=== PATIENT | female | born 1960 | race Caucasian/White ===

== ENCOUNTER 2017-02-11 09:29 | Day surgery (SDC) | payer OTHER ==
[~2017-02-11] VITALS: Ht 167.6 cm; Wt 147.7 kg
[~2017-02-11 09:29] MED LIST: AMBI10TA PO; AMLO5TAB2 PO; CYAN1000P IM; CYCL1TAB29 PO; EVIS60TA PO; MOBI15TA PO; MULT-120 PO; OXYC-395 PO; PROZ40CA PO; ZANT150T2 PO
[2017-02-11 09:47] VITALS: BP 193/112; PULSE 100; TEMP 98.2; O2SAT 95
[2017-02-11] MEDS ORDERED: SODIUM CHLORIDE 0.9% 1000 ML IV SCH (10:00)
[2017-02-11] MEDS ORDERED: MILL5TAB PO (10:01)
[2017-02-11] MEDS ORDERED: MULTTAB67 PO (10:01)
--- NOTE | 2017-02-11 12:07 | PD.RAD ---
Post Procedure Progress Note Pre Procedure Diagnosis: (1) Left shoulder pain Post Procedure Diagnosis: (1) Left shoulder pain Procedure Date: Feb 11, 2017 Supervising Radiologist: Jonathan Sanchez JR Proceduralist/Assist: Fabiola Mendes RT(R)(CV), RT Darling(R)() Anesthesia: Local Plan of Activity Patient to Unit: Other Patient Condition: Good Additional Comments: Left shoulder arthrogram performed with CT to follow. Completer rotator cuff tear observed. CT pending. See PACS Report for procedural detail/treatment Jr. Daniel,Jonathan Fuentes MD Feb 11, 2017 12:07
[2017-02-11] MEDS ORDERED: IOHEXOL 300 MG/ML 50 ML BTL (for RAD DIAG) ONE (12:17)
[2017-02-11 12:25] VITALS: BP 214/159; PULSE 89; RESP 20; TEMP 98.2; O2SAT 97
[2017-02-11 12:50] VITALS: BP 148/87; PULSE 94; RESP 18; O2SAT 96
[2017-02-11] MEDS ORDERED: cloNIDine HCL 0.1 MG TAB PO ONE (13:15)
--- NOTE | 2017-02-11 15:30 | RADRPT ---
EXAM DATE/TIME: 02/11/2017 12:12 [facility] COMPARISON: No previous studies available for comparison. INDICATIONS : Patient with left shoulder pain in need of arthrogram. MEDICAL HISTORY : 1.Breast cancer 2.HTN 3.GERD 4.Depression 5.Arthritis 6.Anemia SURGICAL HISTORY : 1. Right shoulder surgery 2.Spine surgery 3.Hysterectomy 4.Craniotomy 5.Va 6. Gastric bypass ENCOUNTER: Initial ACUITY: 3 months PAIN SCORE: 4/10 LOCATION: Left Shoulder FLUORO TIME: 1.4 minutes IMAGE SERIES: 1 CONTRAST: 13cc Onmipaque 300 DEVICE(S): 22 gauge needle was placed into the left shoulder joint. PROCEDURE : 1. Fluoroscopically guided left shoulder joint puncture. 2. Arthrogram. The risks, benefits and alternatives to the procedure were explained and verbal and written consent w as obtained. The site was prepped in sterile fashion. Full sterile technique was used, including ca p, mask, sterile gloves and gown and a large sterile sheet. Hand hygiene and 2% chlorhexidine and/or betadine/alcohol prep was utilized per protocol for cutaneous antisepsis. The skin and subcutaneous tissues were infiltrated with local anesthetic solution. Under fluoroscopic guidance the left shoulder joint was accessed with a 22 gauge spinal needle via an anterior approach. 13 mL of iodinated contrast was instilled into the joint under fluoroscopic contr ol. There is some opacification of the subacromial bursa suggesting a complete rotator cuff tear. The needle was removed. The patient tolerated the procedure well and there were no complications. Cross-sectional imaging is to be performed for further evaluation. CONCLUSION: Uncomplicated shoulder arthrogram. Cross-sectional imaging is to be performed for further evaluation. Suspected complete rotator cuff tear. Jonathan Sanchez Jr., MD on February 11, 2017 at 13:49 Board Certified Radiologist. This report was verified electronically.
--- NOTE | 2017-02-11 15:40 | RADRPT ---
EXAM DATE/TIME: 02/11/2017 12:13 [facility] COMPARISON: No previous studies available for comparison. INDICATIONS : Post arthogram left shoulder. RADIATION DOSE: 35.45 CTDIvol (mGy) MEDICAL HISTORY : Hypertension. Carcinoma, breast. SURGICAL HISTORY : Craniotomy. Cholecystectomy. ENCOUNTER: Initial ACUITY: 1 day PAIN SCALE: 0/10 LOCATION: Left shoulder TECHNIQUE: Volumetric scanning of the shoulder was performed. Using automated exposure control and adjustment o f the mA and/or kV according to patient size, radiation dose was kept as low as reasonably achievable to obtain optimal diagnostic quality images. FINDINGS: Contrast is seen within the glenohumeral joint. Contrast extends into the subacromial subdeltoid burs a through a defect in the anterior distal supraspinatus tendon. The tear measures 9 mm in medial to l ateral dimension and 1.7 cm in anterior to posterior dimension. Linear interstitial partial-thickness tear more posteriorly in the central supraspinatus tendon and anterior infraspinatus fibers. Labrum within normal limits. Small glenohumeral joint osteophytes. Mild diffuse glenohumeral joint articular cartilage thinning. M oderate acromioclavicular joint hypertrophic change. No evidence of fracture. Alignment within normal limits. Acromial shape is type I. CONCLUSION: 1. Distal anterior full-thickness supraspinatus tendon tear. 2. Partial-thickness bursal surface infraspinatus tendon tear with longitudinal interstitial extensio n. 3. Moderate severity acromioclavicular joint arthrosis. 4. Mild glenohumeral joint arthrosis. Vazquez Guerrero MD on February 11, 2017 at 15:32 Board Certified Radiologist. This report was verified electronically.
[2017-02-17] MEDS ORDERED: METO25TA3 PO (09:24)
== END 2017-02-11 13:20 | disposition home or self-care (01) ==
LOC: HROP 09:29 → HRIP 09:30 → HROP 13:20
PROVIDERS: ATTEND Orthopaedic Surgery Sports Medicine
DX: M75.122 Complete rotator cuff tear or rupture of left shoulder, not specified as traumatic (principal); I10 Essential (primary) hypertension; K21.9 Gastro-esophageal reflux disease without esophagitis; F32.9 Major depressive disorder, single episode, unspecified; M19.90 Unspecified osteoarthritis, unspecified site; D64.9 Anemia, unspecified; Z85.3 Personal history of malignant neoplasm of breast; Z98.84 Bariatric surgery status
CPT/HCPCS: 23350; 73200; 77002; Q9967

== ENCOUNTER → 2017-02-17 | Outpatient (CLI) | payer OTHER ==
[~2017-02-17] MED LIST changes: +METO25TA3 PO; +MILL5TAB PO; -MULT-120 PO; +MULTTAB67 PO
[2017-02-17 09:51] LABS: AUTOMATED NEUTROPHIL # 3.9 TH/MM3 (1.8-7.7); BASOPHIL % 0.5 % (0.0-2.0); EOSINOPHIL # 0.5 TH/MM3 (0-0.4); HEMATOCRIT 42.8 % (35.0-46.0); HEMO FLAGS DIFF FINAL; LYMPH % 19.9 % (9.0-44.0); LYMPHOCYTE # 1.2 TH/MM3 (1.0-4.8); MEAN CELL VOLUME 83.1 FL (80.0-100.0); MEAN CORPUSCULAR HEMOGLOBIN 27.1 PG (27.0-34.0); MEAN CORPUSCULAR HGB CONC 32.6 % (32.0-36.0); MONO % 8.2 % (0.0-8.0); NEUT % 63.4 % (16.0-70.0); PLATELET COUNT 287 TH/MM3 (150-450); RED BLOOD COUNT 5.15 MIL/MM3 (4.00-5.30); RED CELL DISTRIBUTION WIDTH 14.3 % (11.6-17.2); WHITE BLOOD COUNT 6.2 TH/MM3 (4.0-11.0)
== END ==
LOC: CPRE 08:45
PROVIDERS: ATTEND Orthopaedic Surgery Sports Medicine
DX: M75.122 Complete rotator cuff tear or rupture of left shoulder, not specified as traumatic (principal); Z01.812 Encounter for preprocedural laboratory examination
CPT/HCPCS: 36415; 85025

== ENCOUNTER → 2017-02-18 | Outpatient (CLI) | payer OTHER ==
--- NOTE | 2017-02-18 15:20 | EKG ---
Date Performed: 02/18/2017 Time Performed: 08:42:45 PTAGE: 56 years EKG: Sinus rhythm POSSIBLE LEFT ATRIAL ENLARGEMENT LOW QRS VOLTAGE IN PRECORDIAL LEADS BORDERLINE ECG Compared to prio r tracing no significant change PREVIOUS TRACING 12/02/2015 @ 13.51 DOCTOR: Edson Martino Interpretating Date/Time 02/18/2017 15:19:08
== END ==
LOC: CPRE 08:30
PROVIDERS: ATTEND Orthopaedic Surgery Sports Medicine
DX: Z01.810 Encounter for preprocedural cardiovascular examination (principal); M75.122 Complete rotator cuff tear or rupture of left shoulder, not specified as traumatic; R94.31 Abnormal electrocardiogram [ECG] [EKG]
CPT/HCPCS: 93005

== ENCOUNTER → 2017-02-22 | Day surgery (SDC) | payer OTHER ==
[~2017-02-22] VITALS: Ht 167.6 cm; Wt 151.4 kg
[~2017-02-22] MED LIST changes: +BUPIVACAINE/EPINEPHRINE 0.5% PF 30 ML VIAL ONE; +CHLORHEXIDINE GLUCONATE 2 % 1 PACK (2 CLOTHS) TOPICAL PRN; +CHLORHEXIDINE GLUCONATE 4% SOLN 120 ML BTL TOPICAL SCH; +DEXAMETHASONE SOD PHOS 4 MG/ML VIAL ONE; +DO NOT ADM ANY ANTICOAGULANT DRUGS PRN; +EPINEPHrine HCL (1:1000) 30 MG/30 ML VIAL ONE; +FAMOTIDINE 20 MG/2 ML VIAL ONE; +INSULIN HUMAN REGULAR 1,000 UNITS/10 ML VIAL SQ PRN; +LACTATED RINGER'S 1000 ML INJ 1,000 ML IV ONE; +LACTATED RINGER'S 1000 ML IV PRN; +METOPROLOL TARTRATE 25 MG TAB PO PRN; +MIDAZOLAM HCL 2 MG/2 ML VIAL ONE; -MILL5TAB PO; +MORPHINE SULFATE 4 MG/ML INJ IV PRN; +NEOSTIGMINE 3 MG/3 ML SYR IV ONE; +ONDANSETRON HCL 4 MG/2 ML VIAL IV PUSH ONE; +ONDANSETRON HCL 4 MG/2 ML VIAL IV PUSH PRN; +PHENYLEPH/NS 1000 MCG/10 ML SYR IV ONE; +PROPOFOL 200 MG/20 ML AMP IV ONE; +SODIUM CHLORID 0.9% 500 ML IV PRN; +VANCOMYCIN 1000 MG/NS 250 ML (for <70 kg) IV SCH; +ceFAZolin 2 GM PREMIX 50 ML IV SCH; +fentaNYL CITRATE 250 MCG/5 ML AMP ONE; +oxyCODONE/ACETAMINOPHEN 5 MG/325 MG TAB PO PRN
[2017-02-22 12:21] VITALS: BP 147/91; PULSE 90; RESP 18; TEMP 98.5; O2SAT 96
--- NOTE | 2017-02-22 16:36 | PD.OP ---
cc: Raul Kathleen MD Operative Report Date of Surgery: Feb 22, 2017 Preoperative Diagnosis: (1) Complete rotator cuff tear of left shoulder Postoperative Diagnosis: (1) Complete rotator cuff tear of left shoulder (2) Superior glenoid labrum lesion of left shoulder Procedure: Left shoulder arthroscopy, subacromial decompression, debridement of type I SLAP lesion and mini open rotator cuff repair Implants: [employer]ikh and nephew Multi fix anchors 2 Anesthesia: Gen. with preoperative regional block Surgeon: Raul Kathleen Efficiency Miner(s): Micaela Haywood PA-C ([place]) The surgical procedure was assisted by my physician's advertising assistant manager. Her presence was necessary throughout the case for manipulation and positioning of the surgical extremity. My PA was assisting me throughout the duration of this procedure. The skill set of the physician advertising assistant manager was medically necessary to complete this procedure. During the surgical case the zoology technical officer was working at the back table and the physician advertising assistant manager was directly assisting me. Operation and Findings: Indications: This 56-year-old female injured her left shoulder approximately 3 months ago lifting a heavy bag. She felt a pop in the shoulder at that time and had immediate pain. She has had persistent pain and weakness. She underwent a CT arthrogram of the shoulder which revealed a full-thickness rotator cuff tear. She is very limited in her activity. She has had a previous right rotator cuff repair and is doing well in this regard. Given the alternatives of the treatment she wishes to pursue a left rotator cuff repair at this time. Procedure and findings: The patient was taken to the operative suite and after undergoing an adequate level of general anesthesia preceded by an interscalene block in the operating room was then examined. She had a full passive range of motion and no instability. She was then placed into the lateral decubitus position with the arm positioned in a shoulder hamm in approximately 70 of abduction and 30 of forward flexion. It was then prepped and draped in usual sterile fashion with Betadine. Standard arthroscopic portals were established with a posterior camera portal. The joint was entered bluntly with the trocar. Distention of the joint was maintained with an arthroscopic pump. An anterior portal was then established and the interval between the biceps and subscapularis tendons. Inspection of the glenohumeral joint revealed no evidence of articular cartilage abnormality. There was fraying of the superior labrum without detachment consistent with a type I SLAP lesion. This extended onto the anterior labrum which was partially detached at the middle glenohumeral ligament. The undersurface of the supraspinatus was inspected and a full-thickness tear noted. The posterior aspect of the rotator cuff appeared intact. An arthroscopic shaver was utilized to debride the undersurface of the rotator cuff tear as well as the SLAP lesion. Once this was completed the arthroscope in his mentation were removed from the glenohumeral joint. The arm was then positioned in 30 of abduction and neutral forward flexion. The same posterior skin incision was used for a subacromial camera portal. A separate lateral portal was then established a fingerbreadth distal to the acromial tip and anterior one third. A very thickened and inflamed subacromial bursa was excised. An acromioplasty was completed with an arthroscopic bur abrading the undersurface of the acromion up to the level of the deltoid insertion anteriorly allowing the coracoacromial ligament to retract. Additional release was completed with an electrocautery device. The bursal surface of the rotator cuff was inspected and the full-thickness tear noted. Once an adequate decompression was completed the arthroscope and internal rotation were removed. A lateral portal incision was then extended for a distance of approximately 4 cm. This was carried down through skin and subcutaneous tense tissue with a knife. The muscular fascia was incised and split longitudinally. Subdeltoid bursa was partially excised. The rotator cuff tear was identified. The edges were debrided sharply. Roughening of the tuberosity was accomplished with a rongeur. A [employer] and [employer] system was utilized. Utilizing a suture passer both ultra tape and Magnum wire were passed in a mattress fashion. 2 punch holes were then made in the region of the tuberosity. One of the tapes and one of the sutures were then loaded onto a multi fix anchor and it was seated. An additional anchor was placed in a similar fashion. This gave a nice repair. The wound was then thoroughly irrigated. It was closed in layers utilizing 0 Vicryl suture on the muscular fascia and deep tissue, 2-0 Vicryl suture and the subcutaneous tense tissue and jyothi on the skin and portal sites. Sterile dressings were applied, the patient was placed into a sling, transferred to the hospital stretcher and taken to the recovery room in stable condition. Estimated blood loss: Minimal Complications: None Raul Kathleen MD Feb 22, 2017 16:36
[2017-02-22 18:00] VITALS: BP 140/86; PULSE 89; RESP 20; TEMP 97.5; O2SAT 97
== END | disposition home or self-care (01) ==
LOC: HSDC 11:14
PROVIDERS: ATTEND Orthopaedic Surgery Sports Medicine
DX: S46.012A Strain of muscle(s) and tendon(s) of the rotator cuff of left shoulder, initial encounter (principal); X50.0XXA Overexertion from strenuous movement or load, initial encounter; Z01.818 Encounter for other preprocedural examination
CPT/HCPCS: 01630; 29826; 29827; 86850; 86900; 86901; C1713; J0171; J0690; J1100; J2250; J2370; J2405; J2710; J3010; J3370; J7050; J7120

== ENCOUNTER → 2017-04-01 | Outpatient (CLI) | payer OTHER ==
[~2017-04-01] MED LIST changes: -BUPIVACAINE/EPINEPHRINE 0.5% PF 30 ML VIAL ONE; -CHLORHEXIDINE GLUCONATE 2 % 1 PACK (2 CLOTHS) TOPICAL PRN; -CHLORHEXIDINE GLUCONATE 4% SOLN 120 ML BTL TOPICAL SCH; -DEXAMETHASONE SOD PHOS 4 MG/ML VIAL ONE; -DO NOT ADM ANY ANTICOAGULANT DRUGS PRN; -EPINEPHrine HCL (1:1000) 30 MG/30 ML VIAL ONE; -FAMOTIDINE 20 MG/2 ML VIAL ONE; -INSULIN HUMAN REGULAR 1,000 UNITS/10 ML VIAL SQ PRN; -LACTATED RINGER'S 1000 ML INJ 1,000 ML IV ONE; -LACTATED RINGER'S 1000 ML IV PRN; -METOPROLOL TARTRATE 25 MG TAB PO PRN; -MIDAZOLAM HCL 2 MG/2 ML VIAL ONE; -MORPHINE SULFATE 4 MG/ML INJ IV PRN; -NEOSTIGMINE 3 MG/3 ML SYR IV ONE; -ONDANSETRON HCL 4 MG/2 ML VIAL IV PUSH ONE; -ONDANSETRON HCL 4 MG/2 ML VIAL IV PUSH PRN; -PHENYLEPH/NS 1000 MCG/10 ML SYR IV ONE; -PROPOFOL 200 MG/20 ML AMP IV ONE; -SODIUM CHLORID 0.9% 500 ML IV PRN; -VANCOMYCIN 1000 MG/NS 250 ML (for <70 kg) IV SCH; -ceFAZolin 2 GM PREMIX 50 ML IV SCH; -fentaNYL CITRATE 250 MCG/5 ML AMP ONE; -oxyCODONE/ACETAMINOPHEN 5 MG/325 MG TAB PO PRN
[2017-04-01 11:38] LABS: BACTERIA, URINE MOD /hpf; BLOOD, URINE NEG (NEG); GLUCOSE,URINE NEG (NEG); KETONE, URINE NEG (NEG); NITRITE,URINE NEG (NEG); PH, URINE 5.5 (5.0-8.5); SQUAMOUS EPITHELIAL CELL URINE 1 /hpf (0-5); URINE COLOR YELLOW (YELLW/STRAW)
[2017-04-01 11:42] LABS: COMMENT (UR) CULTURE INDICATED; CULTURE IF INDICATED CULTURE INDICATED
== END ==
LOC: CLAB 10:30
PROVIDERS: ATTEND Family Medicine
DX: R30.0 Dysuria (principal)
CPT/HCPCS: 81001; 87086